=== PATIENT | female | born 2005 | race Caucasian/White ===

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

== ENCOUNTER → 2024-07-19 08:00 | Outpatient (BNVA) | payer OTHER, SELFPAY | PROVIDERS: Family Provider Internal Medicine; PCP Family Medicine; Visit Provider Nurse Practitioner Women's Health | DX: N92.0 Excessive and frequent menstruation with regular cycle (principal); N92.6 Irregular menstruation, unspecified | CPT/HCPCS: 76856 ==

== ENCOUNTER → 2024-11-07 10:12 | Outpatient (BNVA) | payer OTHER, SELFPAY | PROVIDERS: Family Provider Internal Medicine; PCP Family Medicine; Visit Provider Nurse Practitioner Women's Health | DX: N94.6 Dysmenorrhea, unspecified (principal) | CPT/HCPCS: 80053; 81241; 82306; 83036; 83520; 84146; 84402; 84403; 84443; 85025 ==

== ENCOUNTER → 2025-01-07 11:24 | Outpatient (BNVA) | payer OTHER, SELFPAY | PROVIDERS: Family Provider Internal Medicine; PCP Family Medicine; Referring Provider Nurse Practitioner Women's Health; Visit Provider Internal Medicine | DX: R00.0 Tachycardia, unspecified (principal); R07.9 Chest pain, unspecified; R55 Syncope and collapse; I49.8 Other specified cardiac arrhythmias | CPT/HCPCS: 36415; 84439; 84443; 93005 ==

== ENCOUNTER 2025-02-06 07:00 | Outpatient (CLI) | payer OTHER, SELFPAY | END 2025-02-06 07:01 | disposition home or self-care (01) | LOC: RAD 07:00 | PROVIDERS: PCP Nurse Practitioner Family; Visit Provider Internal Medicine | DX: R07.9 Chest pain, unspecified (principal); R06.02 Shortness of breath | CPT/HCPCS: 93306 ==

== ENCOUNTER → 2025-03-03 09:48 | Outpatient (BNVA) | payer OTHER, SELFPAY | PROVIDERS: PCP Nurse Practitioner Family; Visit Provider Nurse Practitioner Women's Health | DX: E55.9 Vitamin D deficiency, unspecified (principal) | CPT/HCPCS: 82306 ==